=== PATIENT | female | born 1995 | race Caucasian/White ===

== ENCOUNTER 2017-10-14 05:22 | Inpatient (IN) | payer OTHER ==
[~2017-10-14] VITALS: Ht 157.5 cm; Wt 72.6 kg
[2017-10-14] MEDS ORDERED: PRENATAL 19 TA1 EACH PO (06:51)
== END 2017-10-16 15:00 | disposition home or self-care (01) | DRG 775 ==
LOC: LDR 05:22 → OB/GYN 21:54
PROC: 10E0XZZ Delivery of Products of Conception, External Approach (ICD-10-PCS; principal; 2017-10-14)
PROC: 0KQM0ZZ Repair Perineum Muscle, Open Approach (ICD-10-PCS; 2017-10-14)
PROC: 10907ZC Drainage of Amniotic Fluid, Therapeutic from Products of Conception, Via Natural or Artificial Opening (ICD-10-PCS; 2017-10-14)
PROC: 3E033VJ Introduction of Other Hormone into Peripheral Vein, Percutaneous Approach (ICD-10-PCS; 2017-10-14)
PROC: 4A033R1 Measurement of Arterial Saturation, Peripheral, Percutaneous Approach (ICD-10-PCS; 2017-10-14)
PROC: 4A1HXCZ Monitoring of Products of Conception, Cardiac Rate, External Approach (ICD-10-PCS; 2017-10-14)
DX: O70.1 Second degree perineal laceration during delivery (principal); Z37.0 Single live birth; Z3A.39 39 weeks gestation of pregnancy